=== PATIENT | male | born 1965 | race Caucasian/White ===

== ENCOUNTER 2024-04-14 17:36 | Emergency (ER) | payer SELFPAY ==
[~2024-04-14] VITALS: Ht 182.9 cm; Wt 112.0 kg
== END 2024-04-14 20:00 | disposition left against medical advice (07) ==
LOC: ER 17:36
DX: T85.9XXA Unspecified complication of internal prosthetic device, implant and graft, initial encounter (principal); M54.2 Cervicalgia; Z53.21 Procedure and treatment not carried out due to patient leaving prior to being seen by health care provider
CPT/HCPCS: 99281